=== PATIENT | male | born 1955 | race Caucasian/White ===

== ENCOUNTER 2021-06-22 06:52 | Day surgery (SDC) | payer OTHER ==
[~2021-06-22] VITALS: Ht 185.4 cm; Wt 68.0 kg
[~2021-06-22 06:52] MED LIST: ACETAMINOPHEN-1 EAC1 PO; BUDEPRION SR150 MG PO; CHLORTHALIDONE25 MG PO; CVS FISH OIL 11 EAC3 PO; EFFEXOR XR75 MG PO; ENABLEX15 MG PO; FLEXERIL PO; HYDROCODONE-APA1 TA1 PO; MULTIVITAMINS PO; NORVASC10 MG PO; NORVASC2.5 MG; PREDNISONE 20 M20 MG PO; PREVAGEN PO; SOLIFENACIN SUC10 MG PO; TOVIAZ4 M1; VALIUM2 MG PO; VITAMIN D310 MC2 PO; WELLBUTRIN SR150 MG PO; ZOFRAN ODT4 MG PO; ZPAK PO
[2021-06-22 08:00] VITALS: BP 131/80
--- NOTE | 2021-06-26 06:13 | O ---
[facility] [place] [address] OPERATIVE REPORT Name: JERRELL CANO Room #: DEP [facility] M.Sana.#: [id number] Admission: 06/22/21 Attend Phys: Brandon Hu MD Discharge: 06/22/21 Date of : 53 Report #: [id number] THIS REPORT FOR: cc: Nighat Torres Maggie M. DO White, William L. 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 PROCEDURES: Excision of squamous cell carcinoma of left lower lid and cheek with frozen section control of margins and myocutaneous flap repair of defect, correction of left lower lid entropion by myocutaneous flap. SURGEON: Brandon Hu MD IMAGING TECH: None. ANESTHESIA: MAC. COMPLICATIONS: None. INDICATIONS FOR SURGERY: This pleasant 66-year-old gentleman has a biopsy proven squamous cell carcinoma in the lateral portion of his left lower lid extending onto his cheek. In addition, he apparently has left lower lid ectropion. He presents today primarily for excision of the tumor with reconstruction of that defect along with correction of his left lower lid ectropion, which will be exacerbated if it is not corrected with the removal of the cancer. Informed consent was obtained to include but not limited to the potential risk for loss of vision, bleeding, infection, failure to improve the problem, the potential need for further surgery or treatment. DESCRIPTION OF PROCEDURE: The patient was taken to the operating room where 2% Xylocaine with epinephrine mixed with equal parts 0.75% Marcaine with Wydase was administered transcutaneously and transconjunctivally to the left lower lid, the left lateral canthus, the left cheek and the left infratemporal fossa. The patient was subsequently prepped and draped in the usual sterile fashion. A fine tip skin marking pen was then utilized to outline the lesion including approximately 2 mm of normal appearing tissue. The incisions were then made with a 15C blade and dissected down into the underlying muscle layer. The specimen was then oriented on a drawing as hemostasis was achieved in the field with diligent pinpoint monopolar cautery. The pathologist analyzed the specimen [address] [address] OPERATIVE REPORT Name: JERRELL CANO Cristal Room #: DEP [facility] Mane#: [id number] Admission: 06/22/21 Attend Phys: Brandon Hu MD Discharge: 06/22/21 Date of : 53 Report #: [id number] and found that the lesion had been extirpated with clear margins, but he still had actinic changes in the surrounding skin. Because of the extensive nature of the actinic changes in his face, it was thought unreasonable to pursue margins with normal skin. Attention was then directed to correction of the ectropion. The lateral canthus was then clamped with a Christianson clamp. Sharp canthotomy and cantholysis was then performed. Hemostasis was then re-achieved. A tarsal strip was then prepared laterally removing the lash bearing portion of the redundant lid margin and the redundant tarsal plate. The dissection was then carried out transconjunctivally to elevate the lower lid and cheek as a myocutaneous unit. The myocutaneous flap was then elevated and resuspended with interrupted 5-0 Prolene sutures laterally based on periosteum. The subcutaneous structures were then closed with interrupted 6-0 plain gut sutures. The lower lid ectropion repair having been completed, attention was then turned to repair the defect from the cancer resection. A myocutaneous flap was then developed inferolateral to be rotated into correct the defect orienting the forces towards the point of the periosteum where the ectropion repair had been accomplished. This was thought to be less likely that the patient will have long-term left lower lid retraction. Hemostasis was re-achieved after the flap was elevated and resuspended. The flap was then secured with interrupted buried Vicryl sutures deep and then a final skin closure of 6-0 plain gut sutures. The wounds were then cleaned and dressed with erythromycin ointment. The patient subsequently transported to the recovery area having tolerated the procedure well with no anesthetic or operative complications being noted. <ELECTRONICALLY SIGNED> By: Brandon Hu MD 06/26/21 0613 [id number] Brandon Hu MD /nt
--- NOTE | 2021-06-27 14:57 | PATH ---
[address] [address] PATHOLOGY RPT PROCEDURE Name: JERRELL CANO Room #: DEP [facility]#: [id number] Admission: 06/22/21 Date of : 53 Discharge: 06/22/21 Report #: [id number] Path Case #: [id number] [facility] Accession Number: [id number] . 01 Material submitted: . eyelid - EXCISION LESION LEFT LOWER LID FS. Modifiers: left, lower . 02 Frozen section diagnosis: . FROZEN SECTION DIAGNOSIS: (Lidia Delatorre M.D.) . FSA1, lesion left lower lid, excision: - Negative for invasive carcinoma on FS slides. - Marked actinic keratosis/dysplasia at superior end. . These findings are discussed with Dr. Brandon Hu in OR6 and a written report is placed in the patient's chart. . . Frozen section performed at [facility], [address] [place], [place] [address]puma Jimenez, [place] [address]. . . FROZEN SECTION GROSS DESCRIPTION: Specimen is received fresh from the OR labeled with the patient's name, and "excision lesion left lower lid", consists of a thin strip of skin measuring 1.3 x 0.3 x 0.3 cm. The specimen is oriented as superior, lateral, inferior, and medial. The superior to lateral to inferior margin is inked black, the inferior to medial margin is inked blue and the medial to superior margin is inked green. The deep margin is inked black. At this point, the specimen is sectioned into four pieces and submitted entirely for frozen section as FSA1, this is subsequently submitted for permanent sections as A1. (IUV:kelvin; 06/22/2021) IZV/QMS . 02 Diagnosis: Skin, lesion left lower lid, excision: - No residual squamous cell carcinoma present. - Marked hyperkeratosis and actinic keratosis / damage present. - Margins free of malignancy. . (IUV:mml; 06/23/2021) QLM 06/23/2021 1235 Local . 02 Electronically signed: . Lidia Delatorre MD, Pathologist [address] [place] [address] PATHOLOGY RPT PROCEDURE Name: JERRELL CANO Room #: DEP [facility] Mane#: [id number] Admission: 06/22/21 Date of : 53 Discharge: 06/22/21 Report #: [id number] Path Case #: [id number] NPI- [id number] . 01 Gross description: . PLEASE SEE FROZEN SECTION GROSS DESCRIPTION. /QMS 06/22/2021 1231 Local . 02 Pathologist provided ICD-10: L85.8, L57.0, C44.1192 . 02 CPT . 205739, 708517 Specimen Comment: A duplicate report has been generated due to demographic updates. Performed at: [address] [facility], [place] [id number] MD Chriss Dent MD Phone: [phone] Performed at: [address] [id number] MD Lidia Delatorre MD Phone: [phone]
== END 2021-06-22 10:20 | disposition home or self-care (01) ==
LOC: OR 06:52 → TBA 06:53 → OR 10:19
PROVIDERS: ATTEND Ophthalmology
DX: H02.105 Unspecified ectropion of left lower eyelid (principal); L57.0 Actinic keratosis; L85.8 Other specified epidermal thickening; I10 Essential (primary) hypertension; J43.9 Emphysema, unspecified; M19.90 Unspecified osteoarthritis, unspecified site; F17.210 Nicotine dependence, cigarettes, uncomplicated; Z98.890 Other specified postprocedural states; Z79.899 Other long term (current) drug therapy; Z20.822 Contact with and (suspected) exposure to COVID-19; Z88.8 Allergy status to other drugs, medicaments and biological substances
CPT/HCPCS: 50010; 50101; 50386; 50398; 51636; 62110; 62850; 70005